=== PATIENT | male | born 1975 | race Caucasian/White ===

== ENCOUNTER 2017-02-20 07:26 | Day surgery (SDC) | payer OTHER ==
[2017-02-20] MEDS ORDERED: ceFAZolin 2 GM/50 ML 2 GM/50 ML BAG IV ONE (07:51)
[2017-02-20] MEDS ORDERED: LACTATED RINGERS 1,000 ML IV ONE ×2 (07:57→09:50)
[2017-02-20] MEDS ORDERED: BUPIVACAINE 0.25% PF 30 ML VIAL SUBQ ONE ×2 (09:56)
[2017-02-20] MEDS ORDERED: LIDOCAINE 1%-EPI 1:100000 20 ML MDV SUBQ ONE ×2 (09:59)
[2017-02-20] MEDS ORDERED: PROPOFOL 200 MG/20 ML VIAL IVP ONE (10:15)
[2017-02-20] MEDS ORDERED: GLYCOPYRROLATE 1 MG/5 ML VIAL IVP ONE (10:15)
[2017-02-20] MEDS ORDERED: diphenhydrAMINE INJ 50 MG/ML VIAL IVP ONE (10:15)
--- NOTE | 2017-02-20 11:40 | OPERATIVE REPORT ---
DATE OF SURGERY: 02/20/2017 00:00:00 SURGEON: Latricia Blakely MD. PREOPERATIVE DIAGNOSIS: Perianal fistula. POSTOPERATIVE DIAGNOSIS: Perianal fistula and pilonidal sinuses. INDICATION FOR PROCEDURE: This is a 41-year-old gentleman who has had multiple surgeries for pilonidal sinuses in the past who presented for complaint of drainage from a perianal opening. FINDINGS: After obtaining informed consent, the patient was brought into the operating room and positioned on the operating table in the prone position after receiving a spinal anesthetic. He was administered perioperative antibiotics. He was prepped and draped in the usual sterile fashion and a time- out was taken according to protocol. An exam under anesthesia was performed and he was noted to have 2 very small pilonidal openings in the midline, approximately 1.5 and 1.7 cm from the anal verge. Additionally, he was noted to have a perianal opening in the perirectal subcutaneous tissue noted at both the 11 o'clock and the 6-o'clock positions. There was extensive scarring in this area as well from previous drainage procedures. Additionally, the patient was noted to have extensive scarring in the midline above the pilonidal sinuses. The lacrimal probe was then utilized to identify tracts in each of the openings. There was no connection noted to the anal canal itself; however, the sinuses were noted to connect from the perianal sinus in the 11 o'clock to the 6 o'clock position. The lacrimal probe was placed in this location and an incision created overlying this area, deepened down with electrocautery to the level of the fistulous opening. The fistulous tract was then excised using electrocautery. There was extensive scarring in this region, and as much scar tissue that could be removed safely was. I then turned my attention to the pilonidal sinuses. Initially I attempted to make vivi-sinus incisions; however, the sinuses were in such close proximity that they had to be connected with an incision. The incision was made approximately 1.5 cm in length connecting the 2 sinuses. Extensive scarring was also noted in this location and the fistulous tract and scar tissue was removed with electrocautery. The cavities were both then irrigated and all of the fistulous tract was noted to have been removed. A skin bridge was left between the 2 incisions to allow for faster healing. Hemostasis was then achieved using electrocautery. The lateral incision was then partially closed with 2 interrupted 3-0 nylon sutures. The midline incision was left open. Packing was placed in both incisions and bacitracin placed over the packing. Fluffs, ABD, and disposable underwear were then applied. The patient was then taken to the recovery room in stable condition. ESTIMATED BLOOD LOSS: 10 mL. SPECIMENS: None. COMPLICATIONS: None. JOB #: [id number] [facility] JOB #:[id number] [facility]
[2017-02-20 12:44] VITALS: BP 113/73
[2017-02-20] MEDS ORDERED: oxyCOD/ACETAMIN 5 MG/325 MG TABLET PO ONE (13:05)
== END 2017-02-20 07:27 | disposition home or self-care (01) ==
LOC: SDS 07:26
PROVIDERS: ATTEND Surgery
PROC: 0H98XZZ Drainage of Buttock Skin, External Approach (ICD-10-PCS; 2017-02-20)
PROC: 0DBQ0ZZ Excision of Anus, Open Approach (ICD-10-PCS; principal; 2017-02-20 09:00)
DX: K60.3 Anal fistula (principal); L05.92 Pilonidal sinus without abscess; F17.210 Nicotine dependence, cigarettes, uncomplicated
CPT/HCPCS: 10080; 46270; A9270; J0690; J7120